=== PATIENT | female | born 1985 | race Caucasian/White ===

== ENCOUNTER 2018-12-22 08:51 | Outpatient (CLI) | payer BC ==
--- NOTE | 2018-12-22 09:38 | ULT ---
ABDOMINAL ULTRASOUND HISTORY: Severe gastroesophageal reflux. Eructation. FINDINGS: Liver: Within normal limits. Gallbladder: No gallbladder calculi are visualized. There is no gallbladder wall thickening or perich olecystic fluid. Common duct: Common duct is normal in caliber measuring measuring 2 mm in diameter. Pancreas: The limited visualized pancreas demonstrates a normal sonographic appearance. IVC: Limited visualized IVC has a normal sonographic appearance. Aorta: The aorta is normal in caliber. Spleen: Within normal limits. Kidneys: Kidneys demonstrate a normal sonographic appearance bilaterally with the right kidney measur ing 11.3 cm in length, and the left kidney measures 10.5 cm in length. IMPRESSION: Abdominal ultrasound is within normal limits. No gallbladder calculi are seen
== END 2018-12-22 08:52 | disposition home or self-care (01) ==
LOC: SCSULT 08:51
PROVIDERS: ATTEND Internal Medicine Gastroenterology
DX: K21.9 Gastro-esophageal reflux disease without esophagitis (principal); R14.2 Eructation; R10.30 Lower abdominal pain, unspecified; R14.3 Flatulence; R19.7 Diarrhea, unspecified
CPT/HCPCS: 76700